=== PATIENT | male | born 1950 | race Caucasian/White ===

== ENCOUNTER 2021-01-09 14:14 | Inpatient (IN) | payer MEDICAID, OTHER ==
[~2021-01-09] VITALS: Ht 175.3 cm; Wt 66.3 kg
[~2021-01-09 14:14] MED LIST: ASPI-1497 PO; GLIP5TAB12 PO; HYDR50TA PO; LISI20TA31 PO; METF-416 PO; SIMV-43 PO
[2021-01-09] MEDS: NALOXONE HCL 0.4 MG/ML 1ML VIAL IV ONE ×2 (14:51→15:01)
[2021-01-09] MEDS ORDERED: SODIUM CHLORIDE 0.9% 500 ML IV ONE ×2 (15:00→16:15)
[2021-01-09 15:23] LABS: BASOPHILS % 0.8 % (0.0-2.0); EOSINOPHILS % 2.1 % (0.0-5.0); HEMATOCRIT. 32.1 % (42.0-52.0); HEMOGLOBIN. 11.3 g/dL (14.0-18.0); LYMPHOCYTES % 24.8 % (20.0-50.0); MEAN CORPUSCULAR VOLUME 85.1 fL (80.0-94.0); MEAN PLATELET VOLUME 7.9 fl (7.4-10.4); MONOCYTES % 8.9 % (2.0-8.0); NEUTROPHILS % 63.4 % (40.0-76.0); PLATELET 177 x1000/uL (130-400); RED BLOOD CELL COUNT 3.78 mill/uL (4.7-6.1); RED CELL DISTRIBUTION WIDTH 12.4 % (11.6-14.6)
[2021-01-09 15:30] LABS: CHLORIDE 111 mEq/L (98-107)
[2021-01-09 15:33] LABS: ETHANOL BLOOD < 10 mg/dL
[2021-01-09] MEDS ORDERED: DIPHENHYDRAMINE 50MG/ML VIAL IV PRN (19:15)
[2021-01-09] MEDS ORDERED: ACETAMINOPHEN 325MG TABLET PO PRN (19:15)
[2021-01-09] MEDS ORDERED: ONDANSETRON HCL 4MG/2ML INJ IV PRN (19:15)
[2021-01-09] MEDS ORDERED: IPRATROPIUM/ALBUTEROL 0.5-3(2.5)MG/3ML NEB HHN PRN (19:15)
[2021-01-09] MEDS: CLONIDINE 0.1MG TABLET PO PRN (20:08)
[2021-01-09 20:38] LABS: *COCAINE SCREEN URINE NEGATIVE (NEGATIVE)
[2021-01-09 20:39] LABS: *AMPHETAMINES SCREEN URINE NEGATIVE (NEGATIVE); *BARBITURATES SCREEN URINE NEGATIVE (NEGATIVE); *BENZODIAZEPINES SCREEN URINE NEGATIVE (NEGATIVE); CANNABINOID URINE SCREEN PRESUMTIVE POSITIVE (NEGATIVE); OPIATES URINE SCREEN NEGATIVE (NEGATIVE); PHENCYCLIDINE URINE SCREEN NEGATIVE (NEGATIVE)
[2021-01-09 20:40] LABS: METHADONE URINE SCREEN NEGATIVE (NEGATIVE)
[2021-01-09 22:00] VITALS: BP 181/94
[2021-01-10] VITALS: BP 157/82
[2021-01-10 04:00] VITALS: BP 154/82
[2021-01-10] MEDS ORDERED: *PATIENT'S OWN MEDICATION STORAGE XX SCH (04:45)
[2021-01-10 06:00] VITALS: BP 148/82
[2021-01-10 07:23] LABS: BASOPHILS % 0.6 % (0.0-2.0); EOSINOPHILS % 4.1 % (0.0-5.0); HEMATOCRIT. 31.1 % (42.0-52.0); HEMOGLOBIN. 10.8 g/dL (14.0-18.0); LYMPHOCYTES % 31.9 % (20.0-50.0); MEAN CORPUSCULAR HEMOGLOBIN 29.8 pg (28.0-32.0); MEAN CORPUSCULAR VOLUME 85.6 fL (80.0-94.0); MEAN PLATELET VOLUME 8.7 fl (7.4-10.4); MONOCYTES % 8.7 % (2.0-8.0); NEUTROPHILS % 54.7 % (40.0-76.0); PLATELET 161 x1000/uL (130-400); RED BLOOD CELL COUNT 3.63 mill/uL (4.7-6.1); RED CELL DISTRIBUTION WIDTH 12.8 % (11.6-14.6)
[2021-01-10 07:31] LABS: CHLORIDE 111 mEq/L (98-107)
[2021-01-10 07:56] LABS: HDL CHOLESTEROL 67 mg/dL (40-59); LDL CHOLESTEROL 78 mg/dL (5-100)
[2021-01-10] MEDS: LISINOPRIL 20MG TABLET PO SCH (13:06)
[2021-01-10] MEDS: GLIPIZIDE 5MG TABLET PO SCH (13:06)
[2021-01-10] MEDS: METFORMIN HCL 500MG TABLET PO SCH (13:07)
[2021-01-10] MEDS: HYDROCHLOROTHIAZIDE 25MG TABLET PO SCH (13:08)
[2021-01-10] MEDS: SODIUM CHLORIDE 0.9% 1,000 ML IV SCH (15:57)
[2021-01-10] MEDS: CLONIDINE 0.1MG TABLET PO PRN (18:19)
[2021-01-10 20:00] VITALS: BP 152/90
[2021-01-10] MEDS ORDERED: DEXTROSE 50% WATER 50ML SYRINGE IV PRN (20:00)
[2021-01-10] MEDS: INSULIN LISPRO 100 UNITS/ML SUBCUT SCH (21:00)
[2021-01-10] MEDS: ATORVASTATIN CALCIUM 20MG TABLET PO SCH (21:08)
[2021-01-10] MEDS: INSULIN GLARGINE UD 100 UNITS/ML SYR SUBCUT SCH (21:09)
[2021-01-10] MEDS: BLOOD SUGAR DIAGNOSTIC STRIP TEST SCH (21:13)
[2021-01-10] MEDS ORDERED: LOPERAMIDE HCL 2MG CAPSULE PO PRN (22:30)
[2021-01-11] VITALS: BP 131/80
[2021-01-11 00:52] LABS: AMYLASE 77 IU/L (25-115)
[2021-01-11 00:54] LABS: PROTHROMBIN TIME 11.2 sec (9.6-11.0)
[2021-01-11 04:00] VITALS: BP 128/72
[2021-01-11] MEDS: SODIUM CHLORIDE 0.9% 1,000 ML IV SCH ×2 (05:04→12:54)
[2021-01-11] MEDS: BLOOD SUGAR DIAGNOSTIC STRIP TEST SCH ×4 (06:19→21:30)
[2021-01-11 06:28] LABS: BASOPHILS % 0.9 % (0.0-2.0); EOSINOPHILS % 4.6 % (0.0-5.0); HEMATOCRIT. 30.6 % (42.0-52.0); HEMOGLOBIN. 10.7 g/dL (14.0-18.0); LYMPHOCYTES % 35.5 % (20.0-50.0); MEAN CORPUSCULAR HEMOGLOBIN 29.7 pg (28.0-32.0); MEAN CORPUSCULAR VOLUME 84.7 fL (80.0-94.0); MEAN PLATELET VOLUME 8.8 fl (7.4-10.4); MONOCYTES % 8.2 % (2.0-8.0); NEUTROPHILS % 50.8 % (40.0-76.0); PLATELET 174 x1000/uL (130-400); RED BLOOD CELL COUNT 3.61 mill/uL (4.7-6.1); RED CELL DISTRIBUTION WIDTH 12.7 % (11.6-14.6)
[2021-01-11 06:33] LABS: CHLORIDE 108 mEq/L (98-107)
[2021-01-11 06:40] LABS: PHOSPHORUS 2.8 mg/dL (2.5-4.9)
[2021-01-11] MEDS: INSULIN LISPRO 100 UNITS/ML SUBCUT SCH ×4 (07:12→21:00)
[2021-01-11 08:00] VITALS: BP 141/88
[2021-01-11] MEDS: ASPIRIN 81MG EC TABLET PO SCH (08:02)
[2021-01-11] MEDS: GLIPIZIDE 5MG TABLET PO SCH (08:03)
[2021-01-11] MEDS: HYDROCHLOROTHIAZIDE 25MG TABLET PO SCH (08:03)
[2021-01-11] MEDS: METFORMIN HCL 500MG TABLET PO SCH (08:03)
[2021-01-11] MEDS: LISINOPRIL 20MG TABLET PO SCH (08:03)
[2021-01-11 12:00] VITALS: BP 171/96
[2021-01-11] MEDS: CLONIDINE 0.1MG TABLET PO PRN (13:01)
[2021-01-11] MEDS ORDERED: MAGNESIUM 4 G PREMIX 100 ML IV NR (14:00)
[2021-01-11 16:00] VITALS: BP 134/75
[2021-01-11 17:17] LABS: CLARITY URINE CLEAR (CLEAR); COLOR URINE YELLOW (YELLOW); KETONES URINE NEGATIVE (NEGATIVE); LEUKOCYTE ESTERASE URINE NEGATIVE (NEGATIVE); NITRITE URINE NEGATIVE (NEGATIVE); OCCULT BLOOD URINE NEGATIVE (NEGATIVE); PH URINE 5.5 (4.5-8.0); PROTEIN URINE NEGATIVE (NEGATIVE); SPECIFIC GRAVITY URINE 1.011 (1.005-1.030); UROBILINOGEN URINE 0.2 E.U./dL (0.2-1.0)
[2021-01-11 20:00] VITALS: BP 149/85
[2021-01-11] MEDS: INSULIN GLARGINE UD 100 UNITS/ML SYR SUBCUT SCH (21:29)
[2021-01-11] MEDS: ATORVASTATIN CALCIUM 20MG TABLET PO SCH (21:30)
[2021-01-12] VITALS (7 sets, daily range): BP systolic 139–173; BP diastolic 65–97
[2021-01-12] MEDS: SODIUM CHLORIDE 0.9% 1,000 ML IV SCH (01:00)
[2021-01-12] MEDS: BLOOD SUGAR DIAGNOSTIC STRIP TEST SCH ×3 (06:26→16:23)
[2021-01-12 06:35] LABS: BASOPHILS % 0.6 % (0.0-2.0); EOSINOPHILS % 6.1 % (0.0-5.0); HEMATOCRIT. 29.7 % (42.0-52.0); HEMOGLOBIN. 10.5 g/dL (14.0-18.0); LYMPHOCYTES % 36.5 % (20.0-50.0); MEAN CORPUSCULAR HEMOGLOBIN 30.2 pg (28.0-32.0); MEAN CORPUSCULAR VOLUME 85.4 fL (80.0-94.0); MEAN PLATELET VOLUME 8.9 fl (7.4-10.4); MONOCYTES % 8.6 % (2.0-8.0); NEUTROPHILS % 48.2 % (40.0-76.0); PLATELET 154 x1000/uL (130-400); RED BLOOD CELL COUNT 3.48 mill/uL (4.7-6.1); RED CELL DISTRIBUTION WIDTH 12.6 % (11.6-14.6)
[2021-01-12 06:42] LABS: CHLORIDE 109 mEq/L (98-107)
[2021-01-12 06:51] LABS: PHOSPHORUS 2.8 mg/dL (2.5-4.9)
[2021-01-12] MEDS: INSULIN LISPRO 100 UNITS/ML SUBCUT SCH ×3 (07:40→17:06)
[2021-01-12] MEDS: METFORMIN HCL 500MG TABLET PO SCH (09:28)
[2021-01-12] MEDS: GLIPIZIDE 5MG TABLET PO SCH (09:29)
[2021-01-12] MEDS: ASPIRIN 81MG EC TABLET PO SCH (09:29)
[2021-01-12] MEDS: LISINOPRIL 20MG TABLET PO SCH (09:30)
[2021-01-12] MEDS: HYDROCHLOROTHIAZIDE 25MG TABLET PO SCH (09:37)
[2021-01-12 13:59] LABS: HEPATITIS B SURFACE ANTIGEN NEGATIVE
[2021-01-12 14:29] LABS: HEPATITIS A AB IGM NEGATIVE (NEGATIVE)
[2021-01-12] MEDS: CLONIDINE 0.1MG TABLET PO PRN (17:07)
[2021-01-14 09:12] LABS: SACCHAROMYCES CEREVISIAE IGG 66.3 Units (0.0-24.9); SACCHAROMYCES CEREVISIAE IGM <20.0 Units (0.0-24.9)
[2021-01-14 13:11] LABS: ATYPICAL pANCA <1:20 titer (Neg:<1:20)
== END 2021-01-12 18:20 | disposition home or self-care (01) | DRG 420 ==
LOC: ER 14:14 → 8WST 17:40 → ENRESERV 21:36
PROVIDERS: ADMIT Internal Medicine; ATTEND Internal Medicine
DX: E11.649 Type 2 diabetes mellitus with hypoglycemia without coma (principal); E43 Unspecified severe protein-calorie malnutrition; N17.9 Acute kidney failure, unspecified; G93.40 Encephalopathy, unspecified; I95.9 Hypotension, unspecified; R19.7 Diarrhea, unspecified; E86.0 Dehydration; D64.9 Anemia, unspecified; I10 Essential (primary) hypertension; E86.1 Hypovolemia; R33.9 Retention of urine, unspecified; B19.20 Unspecified viral hepatitis C without hepatic coma; Z79.899 Other long term (current) drug therapy; Z79.82 Long term (current) use of aspirin; Z79.84 Long term (current) use of oral hypoglycemic drugs; Z86.718 Personal history of other venous thrombosis and embolism; Z68.21 Body mass index [BMI] 21.0-21.9, adult; Z82.49 Family history of ischemic heart disease and other diseases of the circulatory system; Z83.3 Family history of diabetes mellitus
CPT/HCPCS: 36415; 71045; 74176; 80048; 80053; 80061; 80305; 80320; 81003; 82150; 82962; 83036; 83540; 83550; 83735; 84100; 84443; 84484; 85025; 85044; 86256; 86301; 86671; 86705; 86709; 86803; 87340; 93005; 93970; 99291; J1200; J1815; J2310; J3475; J7030; J7040; G0480